=== PATIENT | male | born 1950 | race Caucasian/White ===

== ENCOUNTER 2016-11-28 10:13 | Emergency (ER) | payer BC, OTHER ==
[~2016-11-28] VITALS: Ht 170.2 cm; Wt 113.4 kg
--- NOTE | ~2016-11-28 | EKG ---
[address] [address] ELECTROCARDIOGRAM REPORT Name: MALINAIVANSUKHDEEP KHOURY [facility] #: [id number] Admission: 11/28/16 Attend Phys: Discharge: 11/28/16 Date of : 46 Report #: [id number] THIS REPORT FOR: //name// [facility] ED Test Date: 2016-11-28 Test Time: 10:25:46 Pat Name: SUKHDEEP WEBSTER Department: Room: Gender: M Pan Cleaner: [id number] : [id number] Requested By: Ashlee Mccoy Order Number: [id number] MD: Miguel Simon Measurements Intervals [place] Rate: 65 P: 69 IA: 185 QRS: 3 QRSD: 107 T: 2 QT: 403 QTc: 419 Interpretive Statements Sinus rhythm No significant abnormality No previous ECG available for comparison Electronically Signed On 11-28-2016 17:37:58 CDT by Miguel Simon [email or web address] <ELECTRONICALLY SIGNED> By: Miguel Simon MD, [facility] 11/28/16 1737 1025 1025 Miguel Simon MD, FACC /EPI
[~2016-11-28 10:13] MED LIST: ASPIRIN EC325 M1 PO; BENICAR20 MG; CRESTOR20 MG PO; FISHOIL; PLAVIX 75 MG TA75 MG PO; SYNTHROID
[2016-11-28 10:40] LABS: HEMATOCRIT 43.4 % (42.0-52.0); HEMOGLOBIN 14.8 gm/dL (14.0-18.0); MCH 28.8 pg (26.0-34.0); MCHC 34.1 g/dL (28.0-37.0); MCV 84.5 fL (80.0-100.0); PLATELET COUNT 156 thou/uL (150-400); RBC 5.14 mil/uL (4.50-6.00); RDW 14.7 % (10.5-14.5); WBC 5.9 thou/uL (4.0-11.0)
[2016-11-28 10:41] LABS: MANUAL DIFF YES
[2016-11-28 10:55] LABS: ANION GAP 6 mmol/L (7-16); BUN 15 mg/dL (7-18); CALCIUM 8.8 mg/dL (8.5-10.1); CHLORIDE 105 mmol/L (98-107); CO2 28 mmol/L (21-32); CREATININE 0.8 mg/dL (0.7-1.3); GLUCOSE 123 mg/dL (74-106); POTASSIUM 4.5 mmol/L (3.5-5.1); SODIUM 139 mmol/L (136-145)
[2016-11-28 11:05] LABS: NT-PRO BRAIN NAT PEPTIDE 8 pg/mL (<300); TROPONIN-I < 0.04 ng/mL (<0.04-0.07)
[2016-11-28] MEDS ORDERED: ANTIVERT25 MG PO (11:53)
[2016-11-28 12:13] VITALS: BP 117/67
[2016-11-28 12:16] LABS: ABSOLUTE NEUTROPHILS 3.8 thou/uL (1.4-8.2); ANISOCYTOSIS SLIGHT; TOTAL CELL COUNT 100
== END 2016-11-28 12:08 | disposition home or self-care (01) ==
LOC: ER 10:13
PROVIDERS: Emergency Medicine
DX: R42 Dizziness and giddiness (principal); I10 Essential (primary) hypertension; E03.9 Hypothyroidism, unspecified; E78.00 Pure hypercholesterolemia, unspecified; F10.99 Alcohol use, unspecified with unspecified alcohol-induced disorder

== ENCOUNTER → 2019-08-19 | Outpatient (CLI) | payer OTHER ==
[~2019-08-19] MED LIST changes: +ANTIVERT25 MG PO
== END ==
LOC: SJCVC 13:49
DX: I25.10 Atherosclerotic heart disease of native coronary artery without angina pectoris (principal); I10 Essential (primary) hypertension; E78.00 Pure hypercholesterolemia, unspecified; I73.9 Peripheral vascular disease, unspecified; I65.23 Occlusion and stenosis of bilateral carotid arteries

== ENCOUNTER → 2020-05-01 | Outpatient (CLI) | payer OTHER | LOC: SJCVCIMAG 09:24 | PROVIDERS: ATTEND Nuclear Medicine Nuclear Cardiology | DX: I65.23 Occlusion and stenosis of bilateral carotid arteries (principal); I25.10 Atherosclerotic heart disease of native coronary artery without angina pectoris; I73.9 Peripheral vascular disease, unspecified; I10 Essential (primary) hypertension; I77.9 Disorder of arteries and arterioles, unspecified; E78.00 Pure hypercholesterolemia, unspecified; Z95.828 Presence of other vascular implants and grafts; Z79.82 Long term (current) use of aspirin; Z79.899 Other long term (current) drug therapy ==

== ENCOUNTER → 2020-10-24 | Outpatient (CLI) | payer OTHER | LOC: SJCVCIMAG 07:45 | PROVIDERS: ATTEND Internal Medicine Cardiovascular Disease | DX: R94.31 Abnormal electrocardiogram [ECG] [EKG] (principal); I70.201 Unspecified atherosclerosis of native arteries of extremities, right leg; I77.9 Disorder of arteries and arterioles, unspecified; I25.10 Atherosclerotic heart disease of native coronary artery without angina pectoris; I10 Essential (primary) hypertension; E78.00 Pure hypercholesterolemia, unspecified; E03.9 Hypothyroidism, unspecified; Z72.89 Other problems related to lifestyle; Z79.82 Long term (current) use of aspirin; Z79.899 Other long term (current) drug therapy ==

== ENCOUNTER → 2020-10-30 | Outpatient (CLI) | payer OTHER ==
[~2020-10-30] VITALS: Ht 170.2 cm; Wt 102.1 kg
[~2020-10-30] MED LIST changes: +AMARYL1 MG PO; +FLONASE 0.05%50 MCG NASAL; +GLUCOSAMINE HC500 M1 PO; +METFORMIN HCL500 M3 PO; +SUPER THERAVIT1 EACH PO; +VALSARTAN320 MG PO; +ZETIA10 MG PO
[2020-10-30 07:27] VITALS: BP 127/68
[2020-10-30 07:39] LABS: MCH 28.3 pg (26.0-34.0); MCHC 33.4 g/dL (28.0-37.0); MCV 84.7 fL (80.0-100.0); RBC 4.96 mil/uL (4.50-6.00); RDW 15.2 % (10.5-14.5); WBC 6.7 thou/uL (4.0-11.0)
[2020-10-30 07:43] LABS: CALCIUM 8.8 mg/dL (8.5-10.1); CREATININE 0.9 mg/dL (0.7-1.3); POTASSIUM 4.2 mmol/L (3.5-5.1)
--- NOTE | 2020-10-31 16:19 | CATHLAB ---
[facility] [address] INVASIVE PROCEDURE REPORT Name: SUKHDEEP WEBSTER Room #: REG JOANA Keenan.#: [id number] Admission: 10/30/20 Attend Phys: Cesar Sanders MD Discharge: Date of : 46 Report #: [id number] THIS REPORT FOR: cc: Mirza Strauss MD, Neal A. MD Mancuso, Gerald M. MD [facility] ~ APPROVED REPORT Study performed: 10/30/2020 10:36:46 Patient Details Patient Status: Out-Patient Room #: The patient is a 70 year-old male Event Personnel Cesar Sanders Interventional Radiologist, Faisal Livingston Industry Consultant, Lai Chavis RTR Monitor, Abena Gonsalez RT(R)() Scrub, Shan Garibay RN RN, Jose Raul Persaud ARRT, RDCS Scrub Procedures Performed Art Access - L femoral artery* Left Heart Cath w/or w/o Coronaries [id number] [facility] [id number] Initial Mod Sed Same Phys/QHP Gr5y [id number] Mod Sed Same Phys/QHP Ea 386156 Hemostasis w/ Mynx Indication Chest pain Risk Factors Peripheral Vascular Disease Procedure Narrative A SHEATH BRITE-TIP 6F X 11CM ([id number]) sheath was inserted into the LFA^. Coronary angiography was performed using coronary diagnostic catheters. The right coronary system was accessed and visualized with a JR4 catheter. The left coronary system was accessed and visualized with a JL4 catheter. The left ventricle was accessed and visualized with a PIGTAIL catheter. Left ventricular/Aortic Valve gradient assessed via catheter pullback. Closure device was deployed with a 6 Fr MYNXGRIP 6/7F #[id number]. Hemostasis was obtained with manual pressure following sheath removal without any complications. The patient tolerated the procedure well and there were no complications associated with the procedure. There was no hematoma. This was a combination case with Dr. Sanders and a lower extremity run-off was [facility] [address] [place] [place] [address] INVASIVE PROCEDURE REPORT Name: SUKHDEEP WEBSTER Room #: REG [facility]#: [id number] Admission: 10/30/20 Attend Phys: Cesar Sanders, Discharge: Date of : 46 Report #: [id number] performed before left heart cath. Medications and radiation dose reflect both procedures. Intraoperative Conscious Sedation Sedation start time: 836 Case end Time: 1125 Fentanyl 100 mcg Versed 2.5 mg Fluoro Time: 18.64 minutes Dose: DAP 18801.00 cGycm2 1253 mGy Contrast Type and Amount: Visipaque 129 ml Hemodynamics The aortic pressure is 131/69 mmHg with a mean of 95 mmHg. The left ventricular pressure is 137/7 mmHg with a mean of mmHg. The left ventricular end diastolic pressure is 17 mmHg. Pullback from the left ventricle to the aorta revealed a mm gradient across the aortic valve. PCI Technique Lesion Percutaneous coronary intervention was performed on the Superficial Femoral. PCI Technique Lesion 2 Percutaneous Coronary Intervention was performed on the Tibio-peroneal trunk. Conclusion #1. Normal left ventricular size and systolic function EF 60%. #2 left main with mild disease giving rise to LAD and circumflex mild calcification is noted. #3 LAD with diffuse irregularities somewhat of a small system with moderate calcification but no occlusive disease. Attenuated and diffusely diseased distal vessel at the apex. #4 small nondominant circumflex artery no occlusive disease. #5 large dominant right coronary with mild irregularities. This is extensive distribution to the inferior and inferior lateral wall. Also filling the distal inferior apex. Recommendations and plan: Continue aggressive risk factor modification. There is no occasion for coronary intervention. There is minimal progression from the catheterization of 2013. <ELECTRONICALLY SIGNED> By: Faisal Livingston MD, FACC 10/31/20 1618 161 Faisal Livingston MD, FACC /INF
== END | disposition home or self-care (01) ==
LOC: CATH 06:32
PROVIDERS: ATTEND Nuclear Medicine Nuclear Cardiology
DX: R07.9 Chest pain, unspecified (principal); I25.10 Atherosclerotic heart disease of native coronary artery without angina pectoris; I70.238 Atherosclerosis of native arteries of right leg with ulceration of other part of lower leg; L97.919 Non-pressure chronic ulcer of unspecified part of right lower leg with unspecified severity; I70.1 Atherosclerosis of renal artery; I10 Essential (primary) hypertension; E78.00 Pure hypercholesterolemia, unspecified; E03.9 Hypothyroidism, unspecified; Z98.890 Other specified postprocedural states; Z79.899 Other long term (current) drug therapy; Z79.82 Long term (current) use of aspirin

== ENCOUNTER → 2021-02-06 | Outpatient (CLI) | payer OTHER | LOC: SJCVCIMAG 06:57 → SJCVC 09:37 → SJCVCIMAG 14:37 | PROVIDERS: ATTEND Nuclear Medicine Nuclear Cardiology | DX: M79.604 Pain in right leg (principal); I73.9 Peripheral vascular disease, unspecified ==

== ENCOUNTER → 2021-02-07 | Outpatient (CLI) | payer OTHER | LOC: SJCVC 11:24 | PROVIDERS: ATTEND Nuclear Medicine Nuclear Cardiology | DX: I73.9 Peripheral vascular disease, unspecified (principal); I77.9 Disorder of arteries and arterioles, unspecified; I25.10 Atherosclerotic heart disease of native coronary artery without angina pectoris; I10 Essential (primary) hypertension; E78.00 Pure hypercholesterolemia, unspecified; E03.9 Hypothyroidism, unspecified; Z79.82 Long term (current) use of aspirin; Z79.84 Long term (current) use of oral hypoglycemic drugs; Z79.899 Other long term (current) drug therapy; Z72.89 Other problems related to lifestyle ==